=== PATIENT | female | born 1975 | race Caucasian/White ===

== ENCOUNTER 2019-02-22 18:11 | Emergency (ER) | payer MEDICAID ==
[~2019-02-22] VITALS: Ht 167.6 cm; Wt 97.5 kg
[2019-02-22 18:26] VITALS: BP 162/93
--- NOTE | 2019-02-22 18:34 | NUR ---
WAIT AT LOBBY
--- NOTE | 2019-02-22 20:12 | NUR ---
PATIENT AMBULATED TO ER BED 9
[2019-02-22 20:47] LABS: APPEARANCE,URINE CLEAR (CLEAR); BILIRUBIN,URINE NEGATIVE (NEGATIVE); BLOOD, URINE 3+ (NEGATIVE); COLOR,URINE YELLOW (YELLOW); LEUKOCYTE ESTERASE ,URINE NEGATIVE (NEGATIVE); NITRITE, URINE NEGATIVE (NEGATIVE); UGLUCOSE NEGATIVE (NEGATIVE)
[2019-02-22] MEDS: NACL 0.9% 500 ML IV ONE (20:55)
[2019-02-22] MEDS: KETOROLAC 30 MG/ML VIAL IVP ONE (20:56)
--- NOTE | 2019-02-22 21:00 | NUR ---
RECEIVED REPORT FROM MARIEL HAYES, PT IN BED RESTING. VSS AT THIS TIME WILL CONTINUE TO MONITOR CLOSELY.
--- NOTE | 2019-02-22 21:00 | NUR ---
43Y/F PRESENTED TO ED C/O ABDOMINAL PAIN X1WEEK 10 THAT RADIATES TO LOWER BACK. PT ALSO C/O N/V/DIARRHEA/BURNING SENSATION UPON URINATION, DENIES FEVER/CHILLS, PT REPORTED URINE NO FOUL ODOR. PT AAOX4, RR EVEN UNLABORED, GCS 15, ABD ROUND SOFT TENDER TO TOUCH. EDMD SEEN PT, WILL CONTINUE TO MONITOR CLOSELY. BED LOCKED IN LOWEST POSITION, SIDERAIL UPX1. HX: DM, KIDNEY STONES MEDS: METFORMIN
[2019-02-22] MEDS: ONDANSETRON 4 MG/2 ML VIAL IVP ONE (21:18)
[2019-02-22 21:23] LABS: RBC,URINE 0-5 /HPF (0-5); WBC,URINE 0-5 /HPF (0-5)
--- NOTE | 2019-02-22 21:40 | NUR ---
PT RETURN FROM CT
--- NOTE | 2019-02-22 22:13 | NUR ---
RECEIVED REPORT FROM BRI FLOYD
[2019-02-22 23:23] VITALS: BP 142/93
== END 2019-02-22 23:23 | disposition home or self-care (01) ==
LOC: MED 18:11
DX: N23 Unspecified renal colic (principal)
CPT/HCPCS: 74176; 81001; 81025; 96374; 96375; 99284; J1885; J2405; J7030

== ENCOUNTER 2019-02-28 17:47 | Emergency (ER) | payer MEDICAID ==
[~2019-02-28] VITALS: Ht 167.6 cm; Wt 97.7 kg
[2019-02-28 17:51] VITALS: BP 138/84
[2019-02-28] MEDS ORDERED: KETOROLAC 60 MG/2 ML VIAL IM ONE (19:40)
[2019-02-28 20:27] LABS: ANION GAP 10.6 (8-16); CARBON DIOXIDE 29.4 mmol/L (21-32); CREATININE 0.6 mg/dL (0.6-1.3)
[2019-02-28 20:32] LABS: APPEARANCE,URINE CLOUDY (CLEAR); BILIRUBIN,URINE NEGATIVE (NEGATIVE); BLOOD, URINE NEGATIVE (NEGATIVE); COLOR,URINE YELLOW (YELLOW); LEUKOCYTE ESTERASE ,URINE TRACE (NEGATIVE); NITRITE, URINE POSITIVE (NEGATIVE); PH,URINE 5.5 (5.0-9.0); UGLUCOSE NEGATIVE (NEGATIVE)
[2019-02-28 20:45] LABS: RBC,URINE NONE SEEN /HPF (0-5)
[2019-02-28 22:04] VITALS: BP 131/76
== END 2019-02-28 22:03 | disposition home or self-care (01) ==
LOC: MED 17:47
DX: M79.652 Pain in left thigh (principal); E11.9 Type 2 diabetes mellitus without complications
CPT/HCPCS: 36415; 80048; 81001; 81025; 87086; 96372; 99283; J1885; 87186

== ENCOUNTER 2019-04-07 11:42 | Emergency (ER) | payer MEDICAID ==
[~2019-04-07] VITALS: Ht 170.2 cm; Wt 70.3 kg
--- NOTE | 2019-04-07 11:42 | NUR ---
Patient BIBA BLS, transferred to bed 1. RN evaluating patient at bedside.
[2019-04-07 11:47] VITALS: BP 149/94
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
[2019-04-07] MEDS ORDERED: LORazepam 1 MG TAB PO ONE (11:50)
--- NOTE | 2019-04-07 11:59 | NUR ---
LORAZEPAM ADMINISTERED PO, PT TOLERATED WELL
--- NOTE | 2019-04-07 12:01 | NUR ---
[place] EMT AT BEDSIDE FOR EKG
--- NOTE | 2019-04-07 13:11 | NUR ---
PATIENT AMBULATED TO THE RESTROOM.
[2019-04-07] MEDS ORDERED: ACETAMINOPHEN 325 MG TAB PO ONE (13:35)
--- NOTE | 2019-04-07 14:21 | NUR ---
PT STATES SHE HAS DECREASED ANXIETY AT THIS TIME AFTER ATIVAN PO
[2019-04-07 14:23] VITALS: BP 149/78
--- NOTE | 2019-04-07 14:23 | NUR ---
Patient discharged with v/s stable. Written and verbal after care instructions given and explained IN [employer]/[place]. Patient alert, oriented and verbalized understanding of instructions REGARDING ANXIETY. Ambulatory with steady gait. All questions addressed prior to discharge. ID band removed. Patient advised to follow up with PMD. Rx of ATIVAN given. Patient educated on indication of medication including possible reaction and side effects. Opportunity to ask questions provided and answered.
== END 2019-04-07 14:23 | disposition home or self-care (01) ==
LOC: MED 11:42
DX: F41.9 Anxiety disorder, unspecified (principal); R42 Dizziness and giddiness; E11.9 Type 2 diabetes mellitus without complications
CPT/HCPCS: 93005; 99283